=== PATIENT | female | born 1965 | race Two or more races ===

== ENCOUNTER 2024-08-01 09:12 | Emergency (ER) | payer OTHER ==
[~2024-08-01] VITALS: Ht 160 cm; Wt 60.8 kg
[2024-08-01] MEDS ORDERED: 0.9 % SODIUM CHLORIDE 1,000 ML IV STA (09:26)
[2024-08-01] MEDS ORDERED: ONDANSETRON HCL 2 MG/ML VIAL IV STA (09:26)
[2024-08-01] MEDS ORDERED: FAMOTIDINE/PF 20 MG in 0.9 % SODIUM CHLORIDE 8 ML IV PUSH STA (09:26)
[2024-08-01] MEDS ORDERED: ONDANSETRON HCL 2 MG/ML VIAL ONE (09:30)
[2024-08-01] MEDS ORDERED: FAMOTIDINE/PF 20 MG/2 ML VIAL ONE (09:30)
[2024-08-01 10:12] LABS: HEMATOCRIT 37.4 % (36.0-45.00); HEMOGLOBIN 13.1 g/dL (12.0-15.00); MEAN CELL VOLUME 94.5 fL (80.00-100.00); MEAN CORPUSCULAR HEMOGLOBIN 33.2 pg (27.00-32.0); MEAN CORPUSCULAR HGB CONC 35.1 g/dl (32.0-36.0); PLATELET COUNT 259 K/uL (150-450); RED BLOOD COUNT 3.96 M/uL (4.00-6.00); RED CELL DISTRIBUTION WIDTH 14.1 % (11.5-14.5)
[2024-08-01 10:38] LABS: CALCIUM 9.8 mg/dL (8.5-10.1); CREATININE SERUM 0.84 mg/dL (0.55-1.02); GFR 70.14; POTASSIUM 3.71 mEq/L (3.5-5.1)
[2024-08-01 12:18] LABS: PH,URINE 7.5 (5.0-8.0); URINE APPEARANCE Clear; URINE BILIRRUBIN Negative (NEGATIVE); URINE BLOOD NHT; URINE COLOR Yellow; URINE GLUCOSE Negative (NEGATIVE); URINE KETONE Negative (NEGATIVE); URINE LEUKOCYTE Negative; URINE NITRATE Negative; URINE PROTEIN Negative (NEGATIVE); URINE UROBILINOGEN 0.2 E.U./dl
[2024-08-01 12:21] LABS: URINE BACTERIA 15.8 uL (0.0-1933); URINE RBC 21.5 uL (0.0-20.8)
[2024-08-01 12:58] LABS: URINE EPITHELIAL CELLS 0.6 uL (0.0-38.8); URINE WBC 0.4 uL (0.0-23.2)
== END 2024-08-01 14:07 | disposition home or self-care (01) ==
LOC: ER 09:15
PROVIDERS: Emergency Medicine
DX: K52.9 Noninfective gastroenteritis and colitis, unspecified (principal); Z91.013 Allergy to seafood
CPT/HCPCS: 36415; 96365; 96366; 99282; J2405; J3490; J7030